=== PATIENT | female | born 1980 | race Hispanic/Latino ===

== ENCOUNTER 2018-05-26 12:06 | Emergency (ER) | payer BC ==
[2018-05-26] MEDS ORDERED: HYDROCODONE/APAP 7.5/325 MG TAB ONE (14:26)
--- NOTE | 2018-05-26 14:45 | RAD REPORT ---
EXAM DESCRIPTION: RADSacrum And Coccyx05/26/2018 1:52 pm CLINICAL HISTORY: Back pain status post fall FINDINGS: No fracture is seen. An IUD overlies the pelvis
--- NOTE | 2018-05-26 14:46 | RAD REPORT ---
EXAM DESCRIPTION: RAD - Lumbar Spine 3 Views - 05/26/2018 1:56 pm CLINICAL HISTORY: Back pain FINDINGS: The alignment of the lumbar spine is satisfactory. No fracture or dislocation is seen.
--- NOTE | 2018-05-26 14:51 | RAD REPORT ---
EXAM DESCRIPTION: RAD - Foot Right 3 View - 05/26/2018 1:52 pm CLINICAL HISTORY: Right foot pain status post injury FINDINGS: No fracture or dislocation is seen
--- NOTE | 2018-05-26 14:53 | RAD REPORT ---
EXAM DESCRIPTION: RAD - Foot Left 3 View - 05/26/2018 1:52 pm CLINICAL HISTORY: Left Foot pain status post fall FINDINGS: No fracture or dislocation is seen.
--- NOTE | 2018-05-26 15:10 | ER ---
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 Abrasion to right upper arm. Reports pain to bilateral feet, tailbone, and lower back. Denies LOC. Awake and alert with NAD. Care prior to arrival: None. Mechanism of Injury: Fall from 2nd story approximately 10 feet. Trauma event details: Injury occurred in the [facility], Injury occurred: at home. Injury occurred: May 26, 2018 Injury occurred at: 11:55. 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 - Social history:: Smoking status: Patient/guardian denies using tobacco. - Ebola Screening: : Patient negative for fever greater than or equal to 101.5 degrees Fahrenheit, and additional compatible Ebola Virus Disease symptoms Patient denies exposure to infectious person Patient denies travel to an Ebola-affected area in the 21 days before illness onset No symptoms or risks identified at this time. Screenin:50 Abuse screen: Denies threats or abuse. Nutritional screening: No deficits noted. em Tuberculosis screening: No symptoms or risk factors identified. Fall Risk None identified. Primary Survey: 12:22 NO uncontrolled hemorrhage observed. Breathing/Chest: Respiratory pattern: regular, aj Respiratory effort: spontaneous, unlabored, Breath sounds: clear, bilaterally. Chest inspection: symmetrical rise and fall of the chest. Circulation: Skin color: pink, Skin temperature: warm, dry. Disability Alert. Assessment: 12:22 General: Appears in no apparent distress. comfortable, Behavior is calm, cooperative, aj appropriate for age. Pain: Complains of pain in buttocks, right foot and left foot. Neuro: Level of Consciousness is awake, alert, obeys commands, Oriented to person, place, time, situation, Appropriate for age. Respiratory: Airway is patent Respiratory effort is even, unlabored, Respiratory pattern is regular, symmetrical. Derm: Skin is intact, is healthy with good turgor, Skin is pink, warm \T\ dry. normal. Musculoskeletal: Reports pain in buttocks, right foot and left foot. Injury Description: Abrasion sustained to right tricep. 13:20 Reassessment: Patient appears in no apparent distress at this time. Patient and/or em family updated on plan of care and expected duration. Pain level reassessed. Patient is alert, oriented x 3, equal unlabored respirations, skin warm/dry/pink. pt returned from radiology dept. 14:15 Reassessment: Patient appears in no apparent distress at this time. No changes from em previously documented assessment. Patient and/or family updated on plan of care and expected duration. Pain level reassessed. Patient is alert, oriented x 3, equal unlabored respirations, skin warm/dry/pink. 15:10 Reassessment: Patient appears in no apparent distress at this time. Patient and/or em family updated on plan of care and expected duration. Pain level reassessed. Patient is alert, oriented x 3, equal unlabored respirations, skin warm/dry/pink. rates pain 3/10 Patient states feeling better. Vital Signs: 12:22 BP 121 / 67; Pulse 88; Resp 18; Temp 97.7; Pulse Ox 100% on R/A; Weight 77.11 kg; aj Height 5 ft. 1 in. (154.94 cm); 13:50 BP 117 / 57; Pulse 77; Resp 18; Pulse Ox 99% ; Pain 5/10; em 14:50 BP 126 / 61; Pulse 84; Resp 16; Pulse Ox 99% on R/A; Pain 3/10; em 12:22 Body Mass Index 32.12 (77.11 kg, 154.94 cm) aj Pankaj Coma Score: 12:22 Eye Response: spontaneous(4). Verbal Response: oriented(5). Motor Response: obeys aj commands(6). Total: 15. Trauma Score (Adult): 12:22 Eye Response: spontaneous(1); Verbal Response: oriented(1); Motor Response: obeys aj commands(2); Systolic BP: > 89 mm Hg(4); Respiratory Rate: 10 to 29 per min(4); Gilbert Score: 15; Trauma Score: 12 ED Course: 12:10 Patient arrived in ED. mr 12:24 Triage completed. aj 12:27 Arm band placed on left wrist. Patient placed in waiting room, Patient notified of wait aj time. X-ray ordered. 13:42 Valentino Madrid LVN is Primary Nurse. em 13:42 Leif Amador PA is PHCP. jr8 13:42 Andry Sinclair MD is Attending Physician. jr8 13:50 Patient has correct armband on for positive identification. Bed in low position. Call em light in reach. Adult w/ patient. 13:52 XRAY Foot LEFT 3 View In Process Unspecified. EDMS 13:52 XRAY Foot RIGHT 3 View In Process Unspecified. EDMS 13:52 XRAY Sacrum And Coccyx In Process Unspecified. EDMS 13:52 XRAY Lumbar Spine (3 Views) In Process Unspecified. EDMS 15:32 No provider procedures requiring assistance completed. Patient did not have IV access em during this emergency room visit. Administered Medications: 14:20 Drug: Bear (7.5 mg-325 mg) 1 tabs Route: PO; em 15:30 Follow up: Response: No adverse reaction; Pain is decreased em Outcome: 15:09 Discharge ordered by . jr8 15:36 Discharged to home ambulatory, with family. em 15:36 Condition: good 15:36 Discharge instructions given to patient, family, Instructed on discharge instructions, follow up and referral plans. no drinking with medication, no driving heavy equipment, medication usage, Demonstrated understanding of instructions, follow-up care, medications, Prescriptions given X 2. 15:37 Patient left the ED. em Signatures: Dispatcher [employer] Lisbeth Duarte RN Suzy Palma mr Julius, Valentino, MEDICAL OFFICE ASSISTANT MEDICAL OFFICE ASSISTANT em Cherri Rodriguez RN RN iw Roszak, Josh, PA PA jr8 Corrections: (The following items were deleted from the chart) 19:32 13:20 Reassessment: Patient appears in no apparent distress at this time. Patient em and/or family updated on plan of care and expected duration. Pain level reassessed. Patient is alert, oriented x 3, equal unlabored respirations, skin warm/dry/pink. pt returned from radiology dept iw 05/27 07:33 05/26 13:50 BP 117 / 57; Pulse 77bpm; Resp 18bpm; Pulse Ox 99%; em em
--- NOTE | 2018-05-26 15:11 | EDPHYS ---
Physician Documentation [facility] Name: Radha Silverio Age: 38 yrs Sex: Female : 1980 Arrival Date: 05/26/2018 Time: 12:10 Bed 20 Private MD: ED Physician Andry Sinclair HPI: 05/26 15:04 This 38 yrs old Female presents to ER via Wheelchair with complaints of Fell jr8 out of attic. 15:04 Onset: The symptoms/episode began/occurred acutely, today. Severity of symptoms: At jr8 their worst the symptoms were moderate in the emergency department the symptoms are unchanged. The patient has not experienced similar symptoms in the past. The patient has not recently seen a physician. Was putting stuff in attic and mis-stepped causing her to fall through and land feet first then buttock onto table and chairs. Denies hitting head or neck. No LOC . 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 - Social history:: Smoking status: Patient/guardian denies using tobacco. - Ebola Screening: : Patient negative for fever greater than or equal to 101.5 degrees Fahrenheit, and additional compatible Ebola Virus Disease symptoms Patient denies exposure to infectious person Patient denies travel to an Ebola-affected area in the 21 days before illness onset No symptoms or risks identified at this time. ROS: 15:04 Eyes: Negative for injury, pain, redness, and discharge, ENT: Negative for injury, jr8 pain, and discharge, Neck: Negative for injury, pain, and swelling, Cardiovascular: Negative for chest pain, palpitations, and edema, Respiratory: Negative for shortness of breath, cough, wheezing, and pleuritic chest pain, Abdomen/GI: Negative for abdominal pain, nausea, vomiting, diarrhea, and constipation, Skin: Negative for injury, rash, and discoloration, Neuro: Negative for headache, weakness, numbness, tingling, and seizure. 15:04 Back: Positive for pain at rest, pain with movement, of the lumbar area and sacrum. 15:04 MS/extremity: Positive for pain, tenderness, of the left foot and right foot. Exam: 15:04 Head/Face: Normocephalic, atraumatic. Eyes: Pupils equal round and reactive to light, jr8 extra-ocular motions intact. Lids and lashes normal. Conjunctiva and sclera are non-icteric and not injected. Cornea within normal limits. Periorbital areas with no swelling, redness, or edema. ENT: Nares patent. No nasal discharge, no septal abnormalities noted. Tympanic membranes are normal and external auditory canals are clear. Oropharynx with no redness, swelling, or masses, exudates, or evidence of obstruction, uvula midline. Mucous membranes moist. Neck: Trachea midline, no thyromegaly or masses palpated, and no cervical lymphadenopathy. Supple, full range of motion without nuchal rigidity, or vertebral point tenderness. No Meningismus. Chest/axilla: Normal chest wall appearance and motion. Nontender with no deformity. No lesions are appreciated. Cardiovascular: Regular rate and rhythm with a normal S1 and S2. No gallops, murmurs, or rubs. Normal PMI, no JVD. No pulse deficits. Respiratory: Lungs have equal breath sounds bilaterally, clear to auscultation and percussion. No rales, rhonchi or wheezes noted. No increased work of breathing, no retractions or nasal flaring. Abdomen/GI: Soft, non-tender, with normal bowel sounds. No distension or tympany. No guarding or rebound. No evidence of tenderness throughout. Back: No spinal tenderness. No costovertebral tenderness. Full range of motion. Skin: Warm, dry with normal turgor. Normal color with no rashes, no lesions, and no evidence of cellulitis. Neuro: Awake and alert, GCS 15, oriented to person, place, time, and situation. Cranial nerves II-XII grossly intact. Motor strength 5/5 in all extremities. Sensory grossly intact. Cerebellar exam normal. Normal gait. 15:04 Musculoskeletal/extremity: ROM: intact in all extremities, full active range of motion, full passive range of motion, Circulation is intact in all extremities. Sensation intact. Weight bearing: able to fully bear weight, abrasions and ecchymosis to right and left inner arms near elbows. Mild pain to heel of right foot. Vital Signs: 12:22 BP 121 / 67; Pulse 88; Resp 18; Temp 97.7; Pulse Ox 100% on R/A; Weight 77.11 kg; aj Height 5 ft. 1 in. (154.94 cm); 13:50 BP 117 / 57; Pulse 77; Resp 18; Pulse Ox 99% ; Pain 5/10; em 14:50 BP 126 / 61; Pulse 84; Resp 16; Pulse Ox 99% on R/A; Pain 3/10; em 12:22 Body Mass Index 32.12 (77.11 kg, 154.94 cm) aj Pankaj Coma Score: 12:22 Eye Response: spontaneous(4). Verbal Response: oriented(5). Motor Response: obeys aj commands(6). Total: 15. Trauma Score (Adult): 12:22 Eye Response: spontaneous(1); Verbal Response: oriented(1); Motor Response: obeys aj commands(2); Systolic BP: > 89 mm Hg(4); Respiratory Rate: 10 to 29 per min(4); Pankaj Score: 15; Trauma Score: 12 MDM: 13:42 Patient medically screened. jr8 15:04 Data reviewed: vital signs, nurses notes, radiologic studies, plain films, and as a jr8 result, I will discharge patient. Data interpreted: Pulse oximetry: on room air is 99 %. Interpretation: normal. Counseling: I had a detailed discussion with the patient and/or guardian regarding: the historical points, exam findings, and any diagnostic results supporting the discharge/admit diagnosis, radiology results, the need for outpatient follow up, a orthopedic surgeon, to return to the emergency department if symptoms worsen or persist or if there are any questions or concerns that arise at home. 05/26 12:29 Order name: XRAY Foot LEFT 3 View; Complete Time: 14:59 05/26 12:29 Order name: XRAY Foot RIGHT 3 View; Complete Time: 14:59 05/26 12:29 Order name: XRAY Sacrum And Coccyx; Complete Time: 14:47 05/26 13:42 Order name: XRAY Lumbar Spine (3 Views); Complete Time: 14:47 jr8 Administered Medications: 14:20 Drug: Osmond (7.5 mg-325 mg) 1 tabs Route: PO; em 15:30 Follow up: Response: No adverse reaction; Pain is decreased em Disposition: 05/26/18 15:09 Discharged to Home. Impression: Contusion of upper arm, Muscle spasm of back, Contusion of left foot, Contusion of right foot. - Condition is Stable. - Discharge Instructions: Muscle Cramps and Spasms, [id number], Back Exercises, [id number], Heat Therapy. - Prescriptions for Ibuprofen 800 mg Oral Tablet - take 1 tablet by ORAL route every 12 hours As needed take with food; 20 tablet. Cyclobenzaprine 10 mg Oral Tablet - take 1 tablet by ORAL route every 8 hours As needed; 30 tablet. - Medication Reconciliation Form, Thank You Letter, Antibiotic Education, Prescription Opioid Use form. - Follow up: Private Physician; When: 1 week; Reason: Recheck today's complaints, Continuance of care, Re-evaluation by your physician. - Problem is new. - Symptoms have improved. Addendum: 05/30/2018 07:54 Co-signature as Attending Physician, Andry Sinclair MD I agree with the assessment and c chen plan of care. Signatures: Dispatcher [employer] Lisbeth Duarte, Andry Rowe RN, MD MD cha Munoz, Edgar, SHOPPING INVESTIGATOR SHOPPING INVESTIGATOR em Leif Amador PA PA jr8 Corrections: (The following items were deleted from the chart) 05/26 15:37 15:09 05/26/2018 15:09 Discharged to Home. Impression: Contusion of upper arm; Muscle em spasm of back; Contusion of left foot; Contusion of right foot. Condition is Stable. Forms are Medication Reconciliation Form, Thank You Letter, Antibiotic Education, Prescription Opioid Use. Follow up: Private Physician; When: 1 week; Reason: Recheck today's complaints, Continuance of care, Re-evaluation by your physician. Problem is new. Symptoms have improved. jr8
== END 2018-05-26 15:37 | disposition home or self-care (01) ==
LOC: ER 12:06
DX: S40.021A Contusion of right upper arm, initial encounter (principal); S90.32XA Contusion of left foot, initial encounter; S90.31XA Contusion of right foot, initial encounter; W17.89XA Other fall from one level to another, initial encounter; Y93.89 Activity, other specified; Y92.008 Other place in unspecified non-institutional (private) residence as the place of occurrence of the external cause
CPT/HCPCS: 72100; 72220; 99283